=== PATIENT | male | born 1995 | race Caucasian/White ===

== ENCOUNTER 2017-10-25 02:50 | Emergency (ER) | payer OTHER ==
[~2017-10-25] VITALS: Ht 167.6 cm; Wt 63.5 kg
--- NOTE | 2017-10-25 02:51 | NUR ---
PT BIB PD TO ER CHAIR E
[2017-10-25 02:58] VITALS: BP 124/66
[2017-10-25 03:28] VITALS: BP 119/75
--- NOTE | 2017-10-25 03:28 | NUR ---
Patient discharged with v/s stable. Written and verbal after care instructions given and explained. Patient verbalized understanding. Police with in custody. All questions addressed prior to discharge. Advised to follow up with PMD.
== END 2017-10-25 03:28 | disposition home or self-care (01) ==
LOC: MED 02:50
DX: Z04.1 Encounter for examination and observation following transport accident (principal); V49.60XA Unspecified car occupant injured in collision with unspecified motor vehicles in traffic accident, initial encounter; Y93.89 Activity, other specified; Y92.488 Other paved roadways as the place of occurrence of the external cause; Y99.8 Other external cause status
CPT/HCPCS: 99283